=== PATIENT | female | born 1980 | race Hispanic/Latino ===

== ENCOUNTER 2016-10-03 05:57 | Emergency (ER) | payer MEDICARE | END 2016-10-03 07:21 | disposition home or self-care (01) | LOC: BURERS 05:57 | DX: R20.2 Paresthesia of skin (principal); J45.909 Unspecified asthma, uncomplicated; F32.9 Major depressive disorder, single episode, unspecified; F17.210 Nicotine dependence, cigarettes, uncomplicated | CPT/HCPCS: 99283 ==

== ENCOUNTER 2017-03-27 00:06 | Emergency (ER) | payer MEDICARE ==
[2017-03-27] MEDS ORDERED: Ketorolac Tromethamine 30 MG/ML VIAL ONE (00:33)
[2017-03-27] MEDS ORDERED: HYDROcodone/Acetaminophen 10/325 mg Tablet ONE (00:33)
[2017-03-27] MEDS ORDERED: Ondansetron ODT 4 MG TAB ONE (00:33)
== END 2017-03-27 00:54 | disposition home or self-care (01) ==
LOC: BURERS 00:06
DX: G89.18 Other acute postprocedural pain (principal); J45.909 Unspecified asthma, uncomplicated; F32.9 Major depressive disorder, single episode, unspecified; F17.210 Nicotine dependence, cigarettes, uncomplicated
CPT/HCPCS: 96372; J1885; Q0162

== ENCOUNTER 2017-04-21 10:04 | Emergency (ER) | payer MEDICARE ==
[2017-04-21] MEDS ORDERED: Cephalexin 250 MG CAP ONE (10:23)
[2017-04-21] MEDS ORDERED: predniSONE 20 MG TAB ONE (10:29)
== END 2017-04-21 10:28 | disposition home or self-care (01) ==
LOC: BURERS 10:04
DX: J45.901 Unspecified asthma with (acute) exacerbation (principal); J01.90 Acute sinusitis, unspecified; F32.9 Major depressive disorder, single episode, unspecified; F17.210 Nicotine dependence, cigarettes, uncomplicated
CPT/HCPCS: 94640; 94760; J7506; J7620

== ENCOUNTER 2017-04-30 07:22 | Emergency (ER) | payer MEDICARE | END 2017-04-30 07:52 | disposition home or self-care (01) | LOC: BURERS 07:22 | DX: L30.9 Dermatitis, unspecified (principal); J45.909 Unspecified asthma, uncomplicated; F32.9 Major depressive disorder, single episode, unspecified; F17.210 Nicotine dependence, cigarettes, uncomplicated | CPT/HCPCS: 99283 ==

== ENCOUNTER 2017-11-28 22:17 | Emergency (ER) | payer MEDICARE ==
[2017-11-28] MEDS ORDERED: Ibuprofen 800 MG TAB ONE (22:30)
[2017-11-28] MEDS ORDERED: HYDROcodone/Acetaminophen 10/325 mg Tablet ONE (22:30)
[2017-11-28] MEDS ORDERED: Clindamycin 150 MG CAP ONE (22:30)
== END 2017-11-28 22:38 | disposition home or self-care (01) ==
LOC: BURERS 22:17
DX: K04.7 Periapical abscess without sinus (principal); J45.909 Unspecified asthma, uncomplicated; F32.9 Major depressive disorder, single episode, unspecified; F17.210 Nicotine dependence, cigarettes, uncomplicated
CPT/HCPCS: 99283

== ENCOUNTER 2018-07-02 10:17 | Emergency (ER) | payer MEDICARE ==
[2018-07-02 10:54] LABS: Bilirubin Negative (Negative); Blood, Urine Negative (Negative); Clarity Cloudy (Clear); Glucose, Urine (Dipstick) Negative (Negative); Leukocyte Negative (Negative); Nitrite Negative (Negative); Pregnancy Test - Urine (BHCG) Negative (Negative); Protein, Urine (Dipstick) Negative (Neg-Trace); Specific Gravity 1.026 (1.002-1.036); Specific Gravity, Urine 1.026 (1.005-1.030); Urobilinogen 0.2 mg/dL (0.2-1.0); pH, Urine 5.5 (5.0-9.0)
[2018-07-02 10:55] LABS: Pregu Control Background? CLEAR/WHITE (CLR/WHITE); Pregu Control Bar Appear? YES (CONTROL BAR)
--- NOTE | 2018-07-02 19:10 | CT ---
CT ABDOMEN AND PELVIS WITH CONTRAST: 07/02/[address] of the abdomen and pelvis was done with IV contrast only for right flank pain radiating to the mid abdomen. Comparison was made with a May 19 study. Axial slices were acquired, then coron al and sagittal reconstructions were done. The lung bases are clear. The liver is upper normal in size but otherwise shows no abnormality [employer]. The spleen, pancreas, adrenal glands, kidneys and abdominal aorta were all unremarkable in [facility]. There has been a prior cholecystectomy. No mass or hydronephrosis was seen of the kidneys. There is some mild thickening of the wall of the right colon. Mild colitis is suspected. The appendix was identified and appears normal. There is no stranding around bowel. There is no stranding around bowel. There are no dilated loops. No free air of free fluid was seen. CT of the pelvis showed a 4.1 cm left ovarian cyst. There may be some fluid in the endometrial cavity . This would also be best assessed via ultrasound. The right adnexal region was unremarkable in [facility]. IMPRESSION: 1. Mild right colonic thickening. Consider the possibility of colitis. 2. No evidence of urinary tract obstruction or other acute urinary findings. 3. Normal appearing appendix. 4. 4.1 cm left ovarian cyst. Ultrasound would better characterize whether it was purely cystic o r had internal debris. Findings discussed with Dr. Hurd at 1140 on 07/02/18. POS: HOME
== END 2018-07-02 11:57 | disposition home or self-care (01) ==
LOC: BURERS 10:17
DX: K52.9 Noninfective gastroenteritis and colitis, unspecified (principal); J45.909 Unspecified asthma, uncomplicated; F32.9 Major depressive disorder, single episode, unspecified; F17.210 Nicotine dependence, cigarettes, uncomplicated
CPT/HCPCS: 74177; 81003; 81025

== ENCOUNTER 2018-08-10 12:36 | Emergency (ER) | payer MEDICARE ==
[2018-08-10] MEDS ORDERED: Hyoscyamine Sulfate SL 0.125 mg Tablet ONE (12:59)
[2018-08-10] MEDS ORDERED: Ondansetron ODT 4 MG TAB ONE (12:59)
== END 2018-08-10 13:04 | disposition home or self-care (01) ==
LOC: BURERS 12:36
DX: A09 Infectious gastroenteritis and colitis, unspecified (principal); J45.909 Unspecified asthma, uncomplicated; F17.210 Nicotine dependence, cigarettes, uncomplicated; F32.9 Major depressive disorder, single episode, unspecified
CPT/HCPCS: 99283; Q0162

== ENCOUNTER 2018-10-20 21:57 | Emergency (ER) | payer MEDICARE ==
[2018-10-20 22:43] LABS: Pregnancy Test - Urine (BHCG) Negative (Negative); Pregu Control Background? CLEAR/WHITE (CLR/WHITE); Pregu Control Bar Appear? YES (CONTROL BAR); Specific Gravity 1.015 (1.002-1.036)
[2018-10-20 22:44] LABS: Bilirubin Negative (Negative); Blood, Urine Negative (Negative); Clarity Clear (Clear); Glucose, Urine (Dipstick) Negative (Negative); Leukocyte Negative (Negative); Nitrite Negative (Negative); Protein, Urine (Dipstick) Negative (Neg-Trace); Specific Gravity, Urine 1.015 (1.005-1.030); Urobilinogen 0.2 mg/dL (0.2-1.0)
[2018-10-20 22:48] LABS: #Basophils 0.1 thou/uL (0.0-0.2); #Eosinphils 0.1 thou/uL (0.0-0.7); #Lymphocytes 2.8 thou/uL (1.20-3.40); #Monocytes 0.7 thou/uL (0.11-0.59); #Neutrophils 7.6 thou/uL (1.40-6.50); %Basophils 0.7 % (0.0-1.0); %Eosinophils 0.9 % (0.0-10.0); %Monocytes 6.3 % (0.0-10.0); Hemoglobin 13.5 g/dL (12.0-16.0); Mean Corpuscular HGB CONC 33.9 g/dL (32.0-36.0); Mean Corpuscular Hemoglobin 30.6 pg (27.0-31.0); Mean Corpuscular Volume 90.2 fL (78.0-98.0); Mean Platelet Volume 7.4 fL (7.4-10.4); Platelet Count 282 thou/uL (130-400); RBC Distribution Width 12.6 % (11.5-14.5); Red Blood Cell (RBC) Count 4.43 mill/uL (4.20-5.40); White Blood Cell (WBC) Count 11.3 thou/uL (4.8-10.8)
[2018-10-20 22:58] LABS: ALT (SGPT) 21 U/L (8-55); AST (SGOT) 14 U/L (5-34); Albumin 4.1 g/dL (3.5-5.0); Alkaline Phosphatase 78 U/L (40-150); Anion Gap 15 mmol/L (10-20); BUN (Urea Nitrogen) 13 mg/dL (7.0-18.7); Bilirubin, Total 0.3 mg/dL (0.2-1.2); Calc. Creatinine Clearance 0 mL/min (70-130); Calcium 9.2 mg/dL (7.8-10.44); Carbon Dioxide 23 mmol/L (22-29); Chloride 107 mmol/L (98-107); Estimated GFR-MDRD 75; Globulin 2.8 g/dL (2.4-3.5); Glucose 116 mg/dL (70-105); Potassium 3.5 mmol/L (3.5-5.1); Protein, Total 6.9 g/dL (6.0-8.3); Sodium 141 mmol/L (136-145)
== END 2018-10-20 23:33 | disposition home or self-care (01) ==
LOC: BURERS 21:57
DX: K29.70 Gastritis, unspecified, without bleeding (principal); F32.9 Major depressive disorder, single episode, unspecified; F17.210 Nicotine dependence, cigarettes, uncomplicated
CPT/HCPCS: 80053; 81003; 81025; 85025; 96374; 96375

== ENCOUNTER 2019-06-26 22:33 | Emergency (ER) | payer MEDICARE ==
[2019-06-26 23:00] LABS: #Basophils 0.1 thou/uL (0.0-0.2); #Eosinphils 0.1 thou/uL (0.0-0.7); #Monocytes 0.7 thou/uL (0.11-0.59); #Neutrophils 7.3 thou/uL (1.40-6.50); %Lymphocytes 26.8 % (21.0-51.0); %Monocytes 6.3 % (0.0-10.0); %Neutrophils 64.9 % (42.0-75.0); Mean Corpuscular HGB CONC 33.7 g/dL (32.0-36.0); Mean Corpuscular Hemoglobin 30.4 pg (27.0-31.0); Mean Corpuscular Volume 90.2 fL (78.0-98.0); Mean Platelet Volume 7.7 fL (7.4-10.4); Platelet Count 316 thou/uL (130-400); RBC Distribution Width 12.5 % (11.5-14.5); White Blood Cell (WBC) Count 11.2 thou/uL (4.8-10.8)
[2019-06-26 23:11] LABS: ALT (SGPT) 24 U/L (8-55); AST (SGOT) 16 U/L (5-34); Albumin 4.3 g/dL (3.5-5.0); Alkaline Phosphatase 80 U/L (40-110); Anion Gap 15 mmol/L (10-20); BUN (Urea Nitrogen) 12 mg/dL (7.0-18.7); Bilirubin, Total 0.3 mg/dL (0.2-1.2); Calc. Creatinine Clearance 0 mL/min (70-130); Calcium 9.1 mg/dL (7.8-10.44); Carbon Dioxide 23 mmol/L (22-29); Chloride 108 mmol/L (98-107); Estimated GFR-MDRD 79; Globulin 2.6 g/dL (2.4-3.5); Glucose 113 mg/dL (70-105); Lipase 13 U/L (8-78); Potassium 3.7 mmol/L (3.5-5.1); Protein, Total 6.9 g/dL (6.0-8.3); Sodium 142 mmol/L (136-145)
[2019-06-26 23:25] LABS: BHCG - Serum Negative (NEGATIVE); Pregs Control Background? CLEAR/WHITE (CLR/WHITE); Pregs Control Bar Appear? YES (CONTROL BAR)
[2019-06-26] MEDS ORDERED: Magnesium 2 GM/50 ML BAG (IN WATER) ONE (23:37)
[2019-06-26] MEDS ORDERED: Metoclopramide HCl 10 MG/2 ML VIAL ONE (23:37)
[2019-06-26] MEDS ORDERED: Ketorolac Tromethamine 30 MG/ML VIAL ONE (23:37)
[2019-06-26] MEDS ORDERED: diphenhydrAMINE 50 MG/ML VIAL ONE (23:37)
--- NOTE | 2019-06-27 09:40 | RAD ---
PORTABLE CHEST: DATE: 06/26/2019. FINDINGS: An AP portable film at 2303 is compared with a 03/27/2017 study. The heart is normal in size and the lungs are clear. There is no infiltrate or effusion. The mediast inum appears normal. The trachea is midline. IMPRESSION: No acute thoracic findings. POS: HOME
== END 2019-06-27 00:46 | disposition home or self-care (01) ==
LOC: BURERS 22:33
DX: G43.009 Migraine without aura, not intractable, without status migrainosus (principal); R07.89 Other chest pain; J45.909 Unspecified asthma, uncomplicated; F32.9 Major depressive disorder, single episode, unspecified; F17.210 Nicotine dependence, cigarettes, uncomplicated
CPT/HCPCS: 71045; 80053; 83690; 84484; 84703; 85025; 93005; 94760; 96365; 96367; 96375; J1200; J1885; J2765; J3475

== ENCOUNTER 2020-12-29 15:26 | Emergency (ER) | payer MEDICARE, SELFPAY ==
[2020-12-29] MEDS ORDERED: HYDROcodone/Acetaminophen 5/325 mg Tablet ONE (16:25)
== END 2020-12-29 16:52 | disposition home or self-care (01) ==
LOC: BURERS 15:26
DX: S30.0XXA Contusion of lower back and pelvis, initial encounter (principal); F41.9 Anxiety disorder, unspecified; J45.909 Unspecified asthma, uncomplicated; G43.909 Migraine, unspecified, not intractable, without status migrainosus; F17.210 Nicotine dependence, cigarettes, uncomplicated; W22.8XXA Striking against or struck by other objects, initial encounter
CPT/HCPCS: 72131

== ENCOUNTER 2021-02-23 07:56 | Emergency (ER) | payer MEDICARE, SELFPAY ==
[2021-02-24 00:23] LABS: SARS-CoV-2 PCR by NAA Not Detected (NotDetected)
== END 2021-02-23 08:59 | disposition home or self-care (01) ==
LOC: BURERS 07:56
DX: R51.9 Headache, unspecified (principal); R05 Cough; R09.89 Other specified symptoms and signs involving the circulatory and respiratory systems; J45.909 Unspecified asthma, uncomplicated; Z20.822 Contact with and (suspected) exposure to COVID-19; F17.210 Nicotine dependence, cigarettes, uncomplicated; Z79.899 Other long term (current) drug therapy
CPT/HCPCS: 99284; U0003; U0005

== ENCOUNTER 2021-06-03 13:30 | Emergency (ER) | payer MEDICARE, SELFPAY ==
[2021-06-04 18:36] LABS: SARS-CoV-2 PCR by NAA DETECTED (NotDetected)
== END 2021-06-03 14:15 | disposition home or self-care (01) ==
LOC: BURERS 13:30
DX: U07.1 COVID-19 (principal); G43.909 Migraine, unspecified, not intractable, without status migrainosus; J45.909 Unspecified asthma, uncomplicated; Z87.891 Personal history of nicotine dependence
CPT/HCPCS: 99283; U0003; U0005

== ENCOUNTER 2022-08-26 06:26 | Emergency (ER) | payer OTHER ==
[2022-08-26 06:51] LABS: Bilirubin Negative (Negative); Blood, Urine Negative (Negative); Clarity Cloudy (Clear); Glucose, Urine (Dipstick) Negative (Negative); Ketone, Urine Negative (Negative); Leukocyte Negative (Negative); Nitrite Negative (Negative); Protein, Urine (Dipstick) Negative (Neg-Trace); Urobilinogen 0.2 mg/dL (Less than 2); pH, Urine 5.5 (5.0-9.0)
[2022-08-26 06:52] LABS: Pregnancy Test - Urine (BHCG) Negative (Negative); Pregu Control Background? CLEAR/WHITE (CLR/WHITE); Pregu Control Bar Appear? YES (CONTROL BAR); Specific Gravity 1.026 (1.002-1.036); Specific Gravity, Urine 1.026 (1.002-1.036)
[2022-08-26] MEDS ORDERED: Ibuprofen 800 MG TAB ONE (08:05)
[2022-08-26] MEDS ORDERED: Acetaminophen 500 MG TAB ONE (08:05)
== END 2022-08-26 08:12 | disposition home or self-care (01) ==
LOC: BURERS 06:26
DX: R10.31 Right lower quadrant pain (principal)
CPT/HCPCS: 74176; 81003; 81025

== ENCOUNTER 2024-02-04 10:33 | Emergency (ER) | payer OTHER, SELFPAY ==
[2024-02-04] MEDS ORDERED: Ibuprofen 800 MG TAB ONE (11:32)
[2024-02-05 14:38] LABS: SARS-CoV-2 N1 Negative; SARS-CoV-2 N2 Negative; SARS-CoV-2 RNAse P1 Positive
== END 2024-02-04 11:30 | disposition home or self-care (01) ==
LOC: BURERS 10:33
DX: B34.9 Viral infection, unspecified (principal); Z87.891 Personal history of nicotine dependence
CPT/HCPCS: 87635; 87804; 99283

== ENCOUNTER 2024-05-03 14:08 | Emergency (ER) | payer OTHER ==
[2024-05-03] MEDS ORDERED: Aspirin 325 MG TAB ONE (14:48)
[2024-05-03] MEDS ORDERED: Albuterol 2.5 MG (3 mL) NEB ONE (14:48)
[2024-05-03] MEDS ORDERED: Dexamethasone 4 mg/ml Vial ONE (14:48)
[2024-05-03] MEDS ORDERED: Acetaminophen 500 MG TAB ONE (14:48)
[2024-05-03] MEDS ORDERED: Aspirin Chewable 81 MG TAB ONE (14:49)
[2024-05-03 15:10] LABS: Troponin I Less than 0.010 ng/mL (< 0.028)
[2024-05-03] MEDS ORDERED: Loratadine 10 MG TAB PO SCH (16:45)
== END 2024-05-03 16:37 | disposition home or self-care (01) ==
LOC: BURERS 14:08
DX: B34.9 Viral infection, unspecified (principal); Z87.891 Personal history of nicotine dependence
CPT/HCPCS: 36415; 71046; 84484; 87081; 87428; 87430; 93005; 96372; J1100; J7611

== ENCOUNTER 2025-01-01 21:56 | Emergency (ER) | payer OTHER ==
[2025-01-01] MEDS ORDERED: Ibuprofen 200 MG TAB ONE (22:47)
== END 2025-01-01 22:55 | disposition home or self-care (01) ==
LOC: BURERS 21:56
DX: S63.501A Unspecified sprain of right wrist, initial encounter (principal); F17.210 Nicotine dependence, cigarettes, uncomplicated; W10.8XXA Fall (on) (from) other stairs and steps, initial encounter
CPT/HCPCS: 99283